=== PATIENT | male | born 2000 | race Caucasian/White ===

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

== ENCOUNTER 2019-09-21 17:16 | Emergency (ER) | payer MEDICAID ==
[~2019-09-21] VITALS: Ht 193 cm; Wt 69.4 kg
[~2019-09-21 17:16] MED LIST: LOS; LOSARTIN
--- NOTE | 2019-09-21 18:29 | NUR ---
Pt ambulatory to ED room 21 from lobby at this time
--- NOTE | 2019-09-21 18:44 | NUR ---
Pt changed into gown, sitting on gurney, NAD, even and unlabored respirations, denies additional needs at this time. WCTM.
--- NOTE | 2019-09-21 18:50 | NUR ---
Bedside report to LEE Duong, pt care transferred at this time
[2019-09-21 19:56] LABS: BASOPHILS # (AUTO) 0.02 x10^3/uL (0-0.3); BASOPHILS % (AUTO) 0 % (0-1); EOSINOPHILS % (AUTO) 0 % (1-7); LYMPHOCYTES # (AUTO) 0.87 x10^3/uL (1-6.1); LYMPHOCYTES % (AUTO) 12 % (22-44); MD NO; MEAN CORPUSCULAR HEMOGLOBIN 30.7 pg (27.5-34.5); MEAN CORPUSCULAR HGB CONC 33.9 g/dL (33.2-36.2); MEAN CORPUSCULAR VOLUME 90.5 fL (81-97); MEAN PLATELET VOLUME 7.9 fL (7.4-10.4); MONOCYTES % (AUTO) 7 % (2-9); NEUTROPHILS # (AUTO) 6.16 x10^3/uL (1.8-8.0); NEUTROPHILS % (AUTO) 82 % (42-75); PLATELET COUNT 184 x10^3/uL (130-400); RED BLOOD COUNT 5.09 x10^6/uL (4.38-5.82); RED CELL DISTRIBUTION WIDTH 11.8 % (9.4-14.8)
[2019-09-21 20:10] LABS: ANION GAP 6 mmol/L (5-15); CALCIUM 9.5 mg/dL (8.5-10.1); CHLORIDE 105 mmol/L (98-107)
[2019-09-21 20:13] LABS: ALANINE AMINOTRANSFERASE 26 U/L (12-78); ALKALINE PHOSPHATASE 112 U/L (45-117); BILIRUBIN,TOTAL 0.4 mg/dL (0.2-1.0); CREATININE 0.82 mg/dL (0.7-1.3); TOTAL PROTEIN 8.2 g/dL (6.4-8.2)
--- NOTE | 2019-09-21 20:46 | NUR ---
need iv for CT.
[2019-09-21] MEDS ORDERED: OMNIPAQUE 350 MG/ML, 100ML BOTTLE ONE (21:26)
[2019-09-21] MEDS ORDERED: AMOXICILLIN/CLAV 875-125MG TABLET ONE (22:56)
[2019-09-21] MEDS ORDERED: metroNIDAZOLE 500 MG TABLET ONE (22:56)
[2019-09-21] MEDS ORDERED: metroNIDAZOLE 500 MG TABLET PO ONE (23:00)
[2019-09-21] MEDS ORDERED: AMOXICILLIN/CLAV 875-125MG TABLET PO SCH (23:00)
[2019-09-21 23:02] LABS: MICROSCOPIC NOT IND
[2019-09-21 23:06] VITALS: BP 104/83
[2019-09-21 23:09] LABS: CULTURE INDICATED? NO
== END 2019-09-21 23:15 | disposition home or self-care (01) ==
LOC: ED 22:09
DX: A09 Infectious gastroenteritis and colitis, unspecified (principal); Z90.89 Acquired absence of other organs; F17.200 Nicotine dependence, unspecified, uncomplicated
CPT/HCPCS: 36415; 74177; 80053; 81003; 83605; 83690; 85025; 99285; Q9967

== ENCOUNTER 2020-02-24 21:57 | Emergency (ER) | payer MEDICAID ==
[~2020-02-24] VITALS: Ht 195.6 cm; Wt 66.3 kg
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
[2020-02-24] MEDS ORDERED: SODIUM CHLORIDE 0.9% 1,000ML IVBOLUS ONE (22:30)
[2020-02-24] MEDS ORDERED: ACETAMINOPHEN 500 MG TABLET PO ONE (22:30)
[2020-02-24] MEDS ORDERED: ONDANSETRON 2MG/ML, 2ML IVPush ONE (22:30)
[2020-02-24] MEDS ORDERED: MORPHINE SULFATE 4 MG/ML, 1ML IVPush PRN (22:30)
[2020-02-24] MEDS ORDERED: ONDANSETRON 2MG/ML, 2ML ONE (22:35)
[2020-02-24] MEDS ORDERED: MORPHINE SULFATE 4 MG/ML, 1ML ONE (22:35)
[2020-02-24] MEDS ORDERED: ACETAMINOPHEN 500 MG TABLET ONE (22:36)
[2020-02-24 23:51] VITALS: BP 145/83
[2020-02-24 23:53] LABS: BASOPHILS # (AUTO) 0.03 x10^3/uL (0-0.3); BASOPHILS % (AUTO) 0 % (0-1); EOSINOPHILS # (AUTO) 0.19 x10^3/uL (0-0.8); EOSINOPHILS % (AUTO) 1 % (1-7); LYMPHOCYTES # (AUTO) 1.32 x10^3/uL (1-6.1); LYMPHOCYTES % (AUTO) 9 % (22-44); MD NO; MEAN CORPUSCULAR HGB CONC 32.9 g/dL (33.2-36.2); MEAN CORPUSCULAR VOLUME 94.3 fL (81-97); MEAN PLATELET VOLUME 8.3 fL (7.4-10.4); MONOCYTES # (AUTO) 0.96 x10^3/uL (0-1.4); MONOCYTES % (AUTO) 6 % (2-9); NEUTROPHILS # (AUTO) 12.72 x10^3/uL (1.8-8.0); NEUTROPHILS % (AUTO) 84 % (42-75); PLATELET COUNT 175 x10^3/uL (130-400); RED BLOOD COUNT 5.02 x10^6/uL (4.38-5.82); RED CELL DISTRIBUTION WIDTH 11.8 % (9.4-14.8)
[2020-02-25 00:02] LABS: ALBUMIN 4.3 g/dL (3.4-5.0); ANION GAP 9 mmol/L (5-15); CALCIUM 8.3 mg/dL (8.5-10.1); CHLORIDE 110 mmol/L (98-107)
[2020-02-25 00:06] LABS: ALANINE AMINOTRANSFERASE 26 U/L (12-78); ALKALINE PHOSPHATASE 71 U/L (45-117); BILIRUBIN,TOTAL 0.5 mg/dL (0.2-1.0); CREATININE 0.98 mg/dL (0.7-1.3); TOTAL PROTEIN 7.5 g/dL (6.4-8.2)
== END 2020-02-25 01:32 | disposition home or self-care (01) ==
LOC: ED 02-25 01:00
DX: G89.11 Acute pain due to trauma (principal); M25.511 Pain in right shoulder; M25.531 Pain in right wrist; M25.571 Pain in right ankle and joints of right foot; M25.562 Pain in left knee; R07.9 Chest pain, unspecified; F17.210 Nicotine dependence, cigarettes, uncomplicated; Z90.89 Acquired absence of other organs; V18.0XXA Pedal cycle driver injured in noncollision transport accident in nontraffic accident, initial encounter; Y93.89 Activity, other specified; Y92.488 Other paved roadways as the place of occurrence of the external cause; Y99.8 Other external cause status
CPT/HCPCS: 36415; 70450; 71045; 73030; 73110; 73564; 73630; 80053; 85025; 96361; 96374; 96375; 99285; 99406; J2270; J2405; J7030